=== PATIENT | female | born 1960 | race Caucasian/White ===

== ENCOUNTER 2017-08-21 05:26 | Inpatient (IN) | payer MEDICAID, OTHER ==
[~2017-08-21] VITALS: Ht 163.8 cm; Wt 79.5 kg
[~2017-08-21 05:26] MED LIST: ATOR40TA28 PO; CITA20TA9 PO; GLIP5 PO; LISI-662 PO; METF500T4 PO; OXYB5 PO; [UNRECOGNIZED DRUG - OTHER] PO
[2017-08-21] MEDS ORDERED: CeFAZolin 2 GM/DEXTROSE 50 ML IV ONE ×2 (05:43→07:00)
[2017-08-21] MEDS ORDERED: RINGERS SOLUTION,LACTATED 0 ML IV ONE (05:43)
[2017-08-21] MEDS: RINGERS SOLUTION,LACTATED 1,000 ML IV SCH ×2 (06:34→20:20)
[2017-08-21 06:43] LABS: GLUCOSE,POINT OF CARE 157 MG/DL (70-110)
[2017-08-21] MEDS ORDERED: BUPIVACAINE HCL/PF 0.5% 30 ML VIAL ONE (06:53)
[2017-08-21] MEDS ORDERED: SODIUM CHLORIDE 0.9% 1,000 ML IV ONE (06:54)
[2017-08-21] MEDS ORDERED: RINGERS SOLUTION,LACTATED 1,000 ML IV ONE (06:54)
[2017-08-21] MEDS ORDERED: TRANEXAMIC ACID 1,000 MG in DEXTROSE 5%-WATER 50 ML IV ONE (07:30)
[2017-08-21] MEDS ORDERED: FentaNYL CITRATE-PF 100 MCG/2 ML VIAL IVP PRN (07:30)
[2017-08-21] MEDS ORDERED: MEPERIDINE-PF 25 MG/ML SYRINGE IVP PRN (07:30)
[2017-08-21] MEDS ORDERED: HYDROmorphone 2 MG/ML SYRINGE IVP PRN (07:30)
[2017-08-21] MEDS: ACETAMINOPHEN 1000 MG/ISO-OSM 100 ML IV SCH ×3 (08:15→23:48)
[2017-08-21] MEDS ORDERED: ZOLPIDEM TARTRATE 5 MG TABLET PO PRN (08:30)
[2017-08-21] MEDS ORDERED: ALBUMIN HUMAN 25%-12.5GM/50ML 50 ML ONE (08:42)
[2017-08-21] MEDS ORDERED: VANCOMYCIN HCL 1 GM/VIAL ONE (08:58)
[2017-08-21] MEDS ORDERED: BACITRACIN 28.4 GM OINTMENT TP ONE (09:26)
[2017-08-21 10:28] LABS: ANION GAP 10 mmol/L (8-16); CALCIUM, TOTAL 8.8 mg/dL (8.8-10.5); CARBON DIOXIDE 24 mmol/L (22-29); CHLORIDE 98 mmol/L (98-107); CREATININE 0.86 mg/dL (0.60-1.30); GLOMERULAR FILTR. RATE CALC > 60 mL/min (>60); POTASSIUM 4.6 mmol/L (3.5-5.1); SODIUM SERUM 132 mmol/L (136-145); UREA NITROGEN, BLOOD 21 mg/dL (7-18)
[2017-08-21 10:35] VITALS: BP 128/74
[2017-08-21] MEDS: ENOXAPARIN SODIUM 40 MG/0.4 ML PF SYRINGE SQ SCH ×2 (14:25→21:07)
[2017-08-21] MEDS: CeFAZolin 1 GM/DEXTROSE 50 ML IV SCH ×2 (14:25→21:07)
[2017-08-21] MEDS: OxyCODONE HCL/ACETAMINOPHEN 5-325 MG TABLET PO PRN ×2 (15:13→21:06)
[2017-08-21 15:53] VITALS: BP 149/75
[2017-08-21] MEDS: HYDROmorphone 2 MG/ML SYRINGE IVP PRN ×2 (16:32→23:56)
[2017-08-21] MEDS: GlipiZIDE 5 MG TABLET PO SCH (18:04)
[2017-08-21] MEDS: OXYBUTYNIN CHLORIDE 5 MG TABLET PO SCH (18:05)
[2017-08-21] MEDS: OXYGEN THERAPY IH SCH (20:00)
[2017-08-21 20:57] VITALS: BP 128/67
[2017-08-21 23:44] VITALS: BP 147/87
[2017-08-22] MEDS: OXYGEN THERAPY IH SCH (03:53)
[2017-08-22 03:54] VITALS: BP 141/77
[2017-08-22] MEDS: CeFAZolin 1 GM/DEXTROSE 50 ML IV SCH ×2 (04:04→14:31)
[2017-08-22] MEDS ORDERED: ROCURONIUM BROMIDE 10 MG/ML 5 ML VIAL IVP ONE (04:58)
[2017-08-22] MEDS ORDERED: DEXAMETHASONE SOD PHOS 4 MG/ML VIAL IVP ONE (04:58)
[2017-08-22] MEDS ORDERED: LABETALOL HCL 5 MG/ML 20 ML VIAL IVP ONE (04:58)
[2017-08-22] MEDS ORDERED: NEOSTIGMINE METHYLSULFATE 1 MG/ML 10 ML VIAL IVP ONE (04:58)
[2017-08-22] MEDS ORDERED: FentaNYL CITRATE-PF 100 MCG/2 ML VIAL IVP ONE (04:58)
[2017-08-22] MEDS ORDERED: METOCLOPRAMIDE HCL 5 MG/ML 2 ML VIAL IVP ONE (04:58)
[2017-08-22] MEDS ORDERED: MIDAZOLAM HCL 2 MG/2 ML VIAL IVP ONE (04:58)
[2017-08-22] MEDS ORDERED: HYDROmorphone 2 MG/ML SYRINGE IVP ONE (04:58)
[2017-08-22] MEDS ORDERED: PROPOFOL 1% 20 ML VIAL IVP ONE (04:58)
[2017-08-22] MEDS ORDERED: GLYCOPYRROLATE 0.2 MG/ML VIAL IM ONE (04:58)
[2017-08-22] MEDS ORDERED: SUCCINYLCHOLINE CHLORIDE 20 MG/ML 10 ML VIAL IVP ONE (04:58)
[2017-08-22] MEDS ORDERED: ONDANSETRON HCL 4 MG/2 ML VIAL IVP ONE (04:58)
[2017-08-22] MEDS ORDERED: LIDOCAINE HCL/PF 2% 5 ML VIAL IM ONE (04:58)
[2017-08-22 07:10] VITALS: BP 149/74
[2017-08-22] MEDS: GlipiZIDE 5 MG TABLET PO SCH (07:17)
[2017-08-22] MEDS: OxyCODONE HCL/ACETAMINOPHEN 5-325 MG TABLET PO PRN ×2 (07:56→14:29)
[2017-08-22] MEDS: OXYBUTYNIN CHLORIDE 5 MG TABLET PO SCH (07:57)
[2017-08-22] MEDS: ENOXAPARIN SODIUM 40 MG/0.4 ML PF SYRINGE SQ SCH (07:57)
[2017-08-22] MEDS: ACETAMINOPHEN 1000 MG/ISO-OSM 100 ML IV SCH (08:00)
[2017-08-22] MEDS: HYDROmorphone 2 MG/ML SYRINGE IVP PRN (08:44)
[2017-08-22] MEDS ORDERED: CITALOPRAM HYDROBROMIDE 20 MG TABLET PO SCH (09:00)
[2017-08-22] MEDS ORDERED: ATORVASTATIN CALCIUM 40 MG TABLET PO SCH (09:00)
[2017-08-22] MEDS ORDERED: LISINOPRIL 20 MG TABLET PO SCH (09:00)
[2017-08-22] MEDS ORDERED: [UNRECOGNIZED DRUG - OTHER] PO SCH (09:00)
[2017-08-22 11:34] VITALS: BP 108/71
[2017-08-22 15:15] VITALS: BP 132/74
== END 2017-08-22 17:16 | disposition home or self-care (01) | DRG 494 ==
LOC: SURGERY 05:26 → 4E 05:27
PROVIDERS: ADMIT Orthopaedic Surgery; ATTEND Orthopaedic Surgery
PROC: 0PUD07Z Supplement Left Humeral Head with Autologous Tissue Substitute, Open Approach (ICD-10-PCS; 2017-08-21)
PROC: 0PSC04Z Reposition Right Humeral Head with Internal Fixation Device, Open Approach (ICD-10-PCS; principal; 2017-08-21 07:30)
DX: S42.351A Displaced comminuted fracture of shaft of humerus, right arm, initial encounter for closed fracture (principal); W18.30XA Fall on same level, unspecified, initial encounter; Y93.89 Activity, other specified; Y92.89 Other specified places as the place of occurrence of the external cause; Y99.8 Other external cause status
CPT/HCPCS: 82962; 97161; 97165; C1713; J0131; J0330; J0690; J1100; J1170; J1650; J2250; J2405; J2704; J2765; J3010; J3370; J3490; J7030; J7060; J7120; P9047